=== PATIENT | female | born 1940 | race Caucasian/White ===

== ENCOUNTER 2017-01-16 10:03 | Inpatient (IN) | payer MEDICARE, OTHER ==
[~2017-01-16] VITALS: Ht 157.5 cm; Wt 83.9 kg
[~2017-01-16 10:03] MED LIST: LEVO25TA58 PO
[2017-01-16 10:05] VITALS: BP 168/71; PULSE 104; RESP 18; TEMP 98.1; O2SAT 99
[2017-01-16] MEDS ORDERED: ASPIRIN 81 MG TAB.CHEW PO ONE (10:15)
[2017-01-16 10:35] LABS: BASOPHILS % (AUTO) 0.5 % (0.0-2.0); EOSINOPHILS % (AUTO) 0.7 % (0.0-4.0); HEMATOCRIT 35.2 % (36-48); HEMOGLOBIN 11.2 g/dL (12.0-16.0); LYMPHOCYTES # (AUTO) 0.9 K/uL (1.0-5.5); LYMPHOCYTES % (AUTO) 18.8 % (20.5-51.5); MEAN CORPUSCULAR HEMOGLOBIN 25 pg (27-31); MEAN CORPUSCULAR HGB CONC 32 % (32-36); MEAN CORPUSCULAR VOLUME 78 fL (79.0-98.0); MONOCYTES # (AUTO) 0.4 K/uL (0.0-1.0); MONOCYTES % (AUTO) 9.1 % (1.7-9.3); NEUTROPHILS # (AUTO) 3.3 K/uL (1.8-7.7); NEUTROPHILS % (AUTO) 70.9 % (40.0-70.0); PLATELET COUNT (AUTO) 250 K/uL (130-430); RED BLOOD CELL COUNT(AUTO) 4.54 MIL/uL (4.2-6.2); RED CELL DISTRIBUTION WIDTH 16.6 % (9.0-15.0); WHITE BLOOD COUNT (AUTO) 4.6 K/uL (4.8-10.8)
[2017-01-16 10:42] LABS: ANION GAP 12 (5-15); CALCIUM 9.2 mg/dL (8.4-11.0); CHLORIDE 101 mmol/L (98-107); CREATININE 0.93 mg/dL (0.55-1.30); GLUCOSE 151 mg/dL (70-99); POTASSIUM 3.9 mmol/L (3.5-5.1); SODIUM SERUM 137 mmol/L (136-145); UREA NITROGEN, BLOOD 20 mg/dL (8-21)
[2017-01-16 10:45] LABS: PROTHROMBIN TIME 11.1 SECS (9.5-12.5)
[2017-01-16 10:46] LABS: ALANINE AMINOTRANSFERASE 22 U/L (12-78); ALBUMIN 4.1 g/dL (3.4-4.8); ASPARTATE AMINOTRANSFERASE 16 U/L (10-37); CHOLESTEROL 158 mg/dL (<200); HDL CHOLESTEROL 45 mg/dL (>55); LDL CHOLESTEROL 80 mg/dL (<100); TOTAL BILIRUBIN 0.6 mg/dL (0.0-1.0); TOTAL PROTEIN, SERUM 7.4 g/dL (6.4-8.3); TRIGLYCERIDES 166 mg/dL (30-150)
[2017-01-16 11:12] LABS: BILIRUBIN,URINE NEGATIVE (NEGATIVE); BLOOD, URINE NEGATIVE (NEGATIVE); CLARITY/URINE SL HAZY (CLEAR); COLOR,URINE YELLOW (YELLOW); GLUCOSE,URINE NEGATIVE (NEGATIVE); KETONES,URINE NEGATIVE (NEGATIVE); LEUKOCYTE ESTERASE ,URINE 1+ (NEGATIVE); NITRITE, URINE NEGATIVE (NEGATIVE); PROTEIN URINE NEGATIVE (NEGATIVE); UROBILINOGEN,URINE 0.2 (0.2-1.0)
[2017-01-16 11:20] LABS: BACTERIA,URINE FEW /HPF (None Seen); RBC,URINE 0-3 /HPF (0-3)
[2017-01-16] MEDS ORDERED: OMEP20CA10 PO (12:03)
[2017-01-16] MEDS ORDERED: DILT120C89 PO (12:03)
[2017-01-16] MEDS ORDERED: METO50TA7 PO (12:03)
[2017-01-16] MEDS ORDERED: ATOR20TA64 PO (12:03)
[2017-01-16] MEDS ORDERED: CEPH-568 PO (12:03)
[2017-01-16] MEDS ORDERED: LEVO50TA77 PO (12:03)
[2017-01-16] MEDS ORDERED: ASPIRIN 325 MG TABLET PO SCH (12:45)
[2017-01-16] MEDS ORDERED: NITROGLYCERIN 0.4 MG TAB.SUBL SL ONE ×2 (12:45)
[2017-01-16] MEDS ORDERED: DEXTROSE 50% JECT 50 ML DISP.SYRIN IVP PRN ×2 (12:45→13:00)
[2017-01-16] MEDS ORDERED: MORPHINE 4 MG/ML INJ. SYRINGE IVP PRN ×2 (12:45→13:00)
[2017-01-16] MEDS ORDERED: METOPROLOL TARTRATE 25 MG TABLET PO SCH (12:45)
[2017-01-16] MEDS ORDERED: MORPHINE 2 MG/ML INJ. SYRINGE IVP PRN (12:45)
[2017-01-16] MEDS ORDERED: ACETAMINOPHEN 325 MG TABLET PO PRN ×2 (12:45→13:00)
[2017-01-16] MEDS ORDERED: *LOVENOX 1MG/KG Q12H/PHARMACY XX ONE ×2 (12:45)
[2017-01-16] MEDS ORDERED: INSULIN REGULAR, HUMAN 100 UNITS/ML, 10 ML VIAL (novoLIN R) SUBCUT PRN ×2 (12:45→13:00)
[2017-01-16 13:09] VITALS: BP 150/90; PULSE 96; RESP 20; TEMP 97.7; O2SAT 98
[2017-01-16] MEDS ORDERED: ASPIRIN 325 MG TABLET PO ONE (14:00)
[2017-01-16] MEDS: MORPHINE 2 MG/ML INJ. SYRINGE IVP PRN ×2 (14:11→21:03)
[2017-01-16] MEDS ORDERED: ENOXAPARIN SODIUM 80 MG/0.8 ML SYRINGE SUBCUT ONE (14:15)
[2017-01-16 16:24] VITALS: BP 131/63; PULSE 99; RESP 17; TEMP 97.8; O2SAT 96
[2017-01-16] MEDS ORDERED: NACL 0.9% 1,000 ML IV ONE (18:30)
[2017-01-16 19:30] VITALS: BP 141/70; PULSE 94; RESP 18; TEMP 97.3; O2SAT 95
[2017-01-16] MEDS: ENOXAPARIN SODIUM 80 MG/0.8 ML SYRINGE SUBCUT SCH (21:02)
[2017-01-16] MEDS: METOPROLOL TARTRATE 25 MG TABLET PO SCH (21:02)
[2017-01-17 00:53] VITALS: BP 119/60; PULSE 98; RESP 18; TEMP 96.3; O2SAT 92
[2017-01-17] MEDS ORDERED: ONDANSETRON HCL 4 MG/2 ML VIAL IVP PRN (01:30)
[2017-01-17] MEDS: MORPHINE 2 MG/ML INJ. SYRINGE IVP PRN ×2 (01:48→05:55)
[2017-01-17 04:10] VITALS: BP 117/66; PULSE 85; RESP 20; TEMP 96.5; O2SAT 94
[2017-01-17] MEDS ORDERED: LEVOTHYROXINE SODIUM 0.05 MG TABLET PO SCH ×2 (07:00)
[2017-01-17 08:14] VITALS: BP 122/67; PULSE 91; RESP 14; TEMP 98; O2SAT 95
[2017-01-17] MEDS ORDERED: ASPIRIN 325 MG TABLET PO ONE (08:45)
[2017-01-17] MEDS ORDERED: METOPROLOL SUCCINATE 50 MG TAB.SR.24H (TOPROL XL) PO SCH ×2 (09:00)
[2017-01-17] MEDS: ENOXAPARIN SODIUM 80 MG/0.8 ML SYRINGE SUBCUT SCH (09:00)
[2017-01-17] MEDS ORDERED: ASPIRIN 81 MG TAB.CHEW PO SCH (09:00)
[2017-01-17] MEDS ORDERED: ASPIRIN 325 MG TABLET PO SCH (09:00)
[2017-01-17] MEDS ORDERED: DILTIAZEM HCL 120 MG CAP.SR.24H PO SCH ×2 (09:00)
[2017-01-17] MEDS ORDERED: OMEPRAZOLE 20 MG CAPSULE.DR (PriLOSEC) PO SCH ×2 (09:00)
[2017-01-17] MEDS ORDERED: ATORVASTATIN 20 MG TABLET PO SCH ×3 (09:00)
[2017-01-17] MEDS: METOPROLOL TARTRATE 25 MG TABLET PO SCH (09:20)
[2017-01-17 10:34] VITALS: BP 126/66; PULSE 74; RESP 16; TEMP 98.2; O2SAT 94
[2017-01-17 11:00] VITALS: BP 126/66; PULSE 74; RESP 16; TEMP 98.2; O2SAT 94
== END 2017-01-17 11:05 | disposition short-term general hospital (02) | DRG 311 ==
LOC: SED 10:03 → STU 13:18
PROVIDERS: ADMIT Internal Medicine Hospice and Palliative Medicine; ATTEND Internal Medicine Hospice and Palliative Medicine
DX: I20.0 Unstable angina (principal); E11.9 Type 2 diabetes mellitus without complications; E78.5 Hyperlipidemia, unspecified; I10 Essential (primary) hypertension; I48.91 Unspecified atrial fibrillation; F41.9 Anxiety disorder, unspecified; Z86.73 Personal history of transient ischemic attack (TIA), and cerebral infarction without residual deficits; Z88.2 Allergy status to sulfonamides; Z79.899 Other long term (current) drug therapy; Z90.49 Acquired absence of other specified parts of digestive tract
CPT/HCPCS: 36415; 71010; 80053; 80061; 81000-TC; 82962; 83880; 84484; 85025; 85379; 85610-TC; 85730-TC; 87086; 93005; 93306; 99285; J1650; J1815; J2270; J2405; J7030

== ENCOUNTER 2018-03-07 14:45 | Inpatient (IN) | payer OTHER ==
[~2018-03-07] VITALS: Ht 154.9 cm; Wt 80.7 kg
[2018-03-07 14:45] VITALS: BP_SYST 155
[~2018-03-07 14:45] MED LIST changes: +ATOR20TA64 PO; +CEPH-568 PO; +DILT120C89 PO; -LEVO25TA58 PO; +LEVO50TA77 PO; +METO50TA7 PO; +OMEP20CA10 PO
[2018-03-07] MEDS ORDERED: KETOROLAC TROMETHAMINE 30 MG VIAL IVP ONE (15:15)
[2018-03-07] MEDS ORDERED: AMPICILLIN SODIUM/SULBACTAM NA 3 GM in NS 100 ML IV ONE (15:15)
[2018-03-07 15:31] LABS: BASOPHILS % (AUTO) 0.6 % (0.0-2.0); EOSINOPHILS # (AUTO) 0.1 K/uL (0.0-0.4); EOSINOPHILS % (AUTO) 1.3 % (0.0-4.0); HEMATOCRIT 37.8 % (36-48); HEMOGLOBIN 12.5 g/dL (12.0-16.0); LYMPHOCYTES % (AUTO) 17.6 % (20.5-51.5); MEAN CORPUSCULAR HEMOGLOBIN 27 pg (27-31); MEAN CORPUSCULAR HGB CONC 33 % (32-36); MEAN CORPUSCULAR VOLUME 81 fL (79.0-98.0); MONOCYTES # (AUTO) 0.5 K/uL (0.0-1.0); MONOCYTES % (AUTO) 8.2 % (1.7-9.3); PLATELET COUNT (AUTO) 248 K/uL (130-430); RED BLOOD CELL COUNT(AUTO) 4.66 MIL/uL (4.2-6.2); RED CELL DISTRIBUTION WIDTH 22.7 % (9.0-15.0); WHITE BLOOD COUNT (AUTO) 5.6 K/uL (4.8-10.8)
[2018-03-07 15:37] LABS: ANION GAP 10 (5-15); CALCIUM 8.7 mg/dL (8.4-11.0); CHLORIDE 103 mmol/L (98-107); CREATININE 0.83 mg/dL (0.55-1.30); GLUCOSE 156 mg/dL (70-99); POTASSIUM 3.9 mmol/L (3.5-5.1); SODIUM SERUM 137 mmol/L (136-145); UREA NITROGEN, BLOOD 17 mg/dL (8-21)
[2018-03-07] MEDS ORDERED: AMPICILLIN SODIUM/SULBACTAM NA 3 GM VIAL ONE (15:38)
[2018-03-07 15:42] LABS: ALANINE AMINOTRANSFERASE 13 U/L (12-78); ALBUMIN 3.5 g/dL (3.4-4.8); ASPARTATE AMINOTRANSFERASE 15 U/L (10-37); INR 1.1 (0.8-1.2); PROTHROMBIN TIME 11.2 SECS (9.5-12.5); TOTAL BILIRUBIN 0.8 mg/dL (0.0-1.0)
[2018-03-07 16:03] LABS: NEUTROPHILS % (AUTO) 72.3 % (40.0-70.0)
[2018-03-07] MEDS ORDERED: TRAM50TA92 PO (16:26)
[2018-03-07] MEDS ORDERED: WARF1TAB2 PO (16:26)
[2018-03-07] MEDS ORDERED: CLOP75TA2 PO (16:26)
[2018-03-07] MEDS ORDERED: SOTA80TA PO (16:26)
[2018-03-07] MEDS ORDERED: ISOS30TA6 PO (16:26)
[2018-03-07] MEDS ORDERED: PRO40 PO (16:26)
[2018-03-07] MEDS ORDERED: GLIP-195 PO (16:26)
[2018-03-07 16:46] VITALS: BP_SYST 149
[2018-03-07] MEDS ORDERED: APIX5TAB PO (17:02)
[2018-03-07] MEDS ORDERED: MORPHINE 2 MG/ML INJ. SYRINGE IVP PRN (17:45)
[2018-03-07] MEDS ORDERED: traMADol HCL HCL 50 MG TABLET (ULTRAM) PO PRN (17:45)
[2018-03-07] MEDS ORDERED: ACETAMINOPHEN 325 MG TABLET PO PRN (17:45)
[2018-03-07] MEDS ORDERED: DEXTROSE 50% JECT 50 ML DISP.SYRIN IVP PRN (17:45)
[2018-03-07] MEDS: VANCOMYCIN HCL 1,000 MG in NS 250 ML IV SCH (18:45)
[2018-03-07 19:00] VITALS: BP_SYST 123
[2018-03-07] MEDS ORDERED: VANCOMYCIN HCL 1000 MG/VIAL IV ONE (20:55)
[2018-03-07] MEDS: MORPHINE 4 MG/ML INJ. SYRINGE IVP PRN (21:28)
[2018-03-07] MEDS: SOTALOL HCL 80 MG TABLET PO SCH (21:28)
[2018-03-08] VITALS (8 sets, daily range): BP systolic 102–142
[2018-03-08] MEDS: MORPHINE 4 MG/ML INJ. SYRINGE IVP PRN (04:20)
[2018-03-08] MEDS: LEVOTHYROXINE SODIUM 0.05 MG TABLET PO SCH (06:07)
[2018-03-08] MEDS: glipiZIDE XL 5 MG TAB ( GLUCOTROL XL) PO SCH (09:36)
[2018-03-08] MEDS: PANTOPRAZOLE SODIUM 40 MG TAB PO SCH (09:36)
[2018-03-08] MEDS: ATORVASTATIN 20 MG TABLET PO SCH (09:36)
[2018-03-08] MEDS: DILTIAZEM HCL 120 MG CAP.SR.24H PO SCH (09:37)
[2018-03-08] MEDS: METOPROLOL SUCCINATE 50 MG TAB.SR.24H (TOPROL XL) PO SCH (09:37)
[2018-03-08] MEDS ORDERED: NS 500 ML IV ONE (09:45)
[2018-03-08] MEDS: ISOSORBIDE MONONITRATE 30 MG TAB.ER.24H PO SCH (11:48)
[2018-03-08] MEDS: SOTALOL HCL 80 MG TABLET PO SCH ×2 (11:49→20:50)
[2018-03-08] MEDS ORDERED: ENOXAPARIN SODIUM 40 MG/0.4 ML SYRINGE SUBCUT ONE (15:15)
[2018-03-08] MEDS: ONDANSETRON HCL 4 MG/2 ML VIAL IVP PRN (15:54)
[2018-03-08] MEDS: INSULIN REGULAR, HUMAN 100 UNITS/ML, 10 ML VIAL (novoLIN R) SUBCUT PRN (17:20)
[2018-03-08] MEDS: VANCOMYCIN HCL 1,000 MG in NS 250 ML IV SCH (18:09)
[2018-03-09] MEDS: MORPHINE 4 MG/ML INJ. SYRINGE IVP PRN (02:27)
[2018-03-09] MEDS: LEVOTHYROXINE SODIUM 0.05 MG TABLET PO SCH (06:13)
[2018-03-09 06:21] LABS: ANION GAP 6 (5-15); CALCIUM 8.7 mg/dL (8.4-11.0); CHLORIDE 108 mmol/L (98-107); CREATININE 0.76 mg/dL (0.55-1.30); GLUCOSE 91 mg/dL (70-99); HEMATOCRIT 34.5 % (36-48); MEAN CORPUSCULAR HEMOGLOBIN 26 pg (27-31); MEAN CORPUSCULAR HGB CONC 32 % (32-36); MEAN CORPUSCULAR VOLUME 82 fL (79.0-98.0); PLATELET COUNT (AUTO) 183 K/uL (130-430); RED BLOOD CELL COUNT(AUTO) 4.19 MIL/uL (4.2-6.2); RED CELL DISTRIBUTION WIDTH 22.9 % (9.0-15.0); SODIUM SERUM 141 mmol/L (136-145); UREA NITROGEN, BLOOD 15 mg/dL (8-21); WHITE BLOOD COUNT (AUTO) 4.6 K/uL (4.8-10.8)
[2018-03-09 08:01] VITALS: BP_SYST 138
[2018-03-09] MEDS: ISOSORBIDE MONONITRATE 30 MG TAB.ER.24H PO SCH (08:49)
[2018-03-09] MEDS: SOTALOL HCL 80 MG TABLET PO SCH ×2 (08:50→21:09)
[2018-03-09] MEDS: METOPROLOL SUCCINATE 50 MG TAB.SR.24H (TOPROL XL) PO SCH (08:51)
[2018-03-09] MEDS: glipiZIDE XL 5 MG TAB ( GLUCOTROL XL) PO SCH (08:52)
[2018-03-09] MEDS: DILTIAZEM HCL 120 MG CAP.SR.24H PO SCH (08:52)
[2018-03-09] MEDS: ATORVASTATIN 20 MG TABLET PO SCH (08:53)
[2018-03-09] MEDS: PANTOPRAZOLE SODIUM 40 MG TAB PO SCH (08:54)
[2018-03-09] MEDS: ONDANSETRON HCL 4 MG/2 ML VIAL IVP PRN (08:54)
[2018-03-09] MEDS: ENOXAPARIN SODIUM 40 MG/0.4 ML SYRINGE SUBCUT SCH (08:54)
[2018-03-09] MEDS ORDERED: LACTULOSE 20 GM/30 ML UDC PO ONE (09:15)
[2018-03-09 11:55] VITALS: BP_SYST 129
[2018-03-09 12:00] LABS: BASOPHILS % (MANUAL) 0 % (0-2); EOSINOPHILS % (MANUAL) 4 % (0-7); LYMPHOCYTES % (MANUAL) 44 % (20-46); MONOCYTES % (MANUAL) 8 % (0-11)
[2018-03-09 16:09] VITALS: BP_SYST 125
[2018-03-09] MEDS: INSULIN REGULAR, HUMAN 100 UNITS/ML, 10 ML VIAL (novoLIN R) SUBCUT PRN (18:01)
[2018-03-09] MEDS: VANCOMYCIN HCL 1,000 MG in NS 250 ML IV SCH (18:31)
[2018-03-09 19:00] VITALS: BP_SYST 114
[2018-03-09 20:00] VITALS: BP_SYST 114
[2018-03-09] MEDS ORDERED: TEMAZEPAM 15 MG CAPSULE PO PRN (23:30)
[2018-03-10 00:02] VITALS: BP_SYST 116
[2018-03-10] MEDS: MORPHINE 4 MG/ML INJ. SYRINGE IVP PRN ×2 (00:09→06:56)
[2018-03-10] MEDS: LEVOTHYROXINE SODIUM 0.05 MG TABLET PO SCH (06:12)
[2018-03-10 06:51] LABS: BASOPHILS % (AUTO) 0.6 % (0.0-2.0); EOSINOPHILS # (AUTO) 0.2 K/uL (0.0-0.4); EOSINOPHILS % (AUTO) 3.3 % (0.0-4.0); HEMATOCRIT 34.8 % (36-48); HEMOGLOBIN 11.3 g/dL (12.0-16.0); LYMPHOCYTES # (AUTO) 1.3 K/uL (1.0-5.5); LYMPHOCYTES % (AUTO) 20.6 % (20.5-51.5); MEAN CORPUSCULAR HEMOGLOBIN 27 pg (27-31); MEAN CORPUSCULAR HGB CONC 32 % (32-36); MEAN CORPUSCULAR VOLUME 83 fL (79.0-98.0); MONOCYTES # (AUTO) 0.6 K/uL (0.0-1.0); NEUTROPHILS # (AUTO) 4.2 K/uL (1.8-7.7); NEUTROPHILS % (AUTO) 65.5 % (40.0-70.0); PLATELET COUNT (AUTO) 176 K/uL (130-430); RED CELL DISTRIBUTION WIDTH 22.9 % (9.0-15.0)
[2018-03-10 06:54] LABS: WHITE BLOOD COUNT (AUTO) 6.4 K/uL (4.8-10.8)
[2018-03-10] MEDS: ENOXAPARIN SODIUM 40 MG/0.4 ML SYRINGE SUBCUT SCH (09:46)
[2018-03-10] MEDS: METOPROLOL SUCCINATE 50 MG TAB.SR.24H (TOPROL XL) PO SCH (09:46)
[2018-03-10] MEDS: DILTIAZEM HCL 120 MG CAP.SR.24H PO SCH (09:47)
[2018-03-10] MEDS: SOTALOL HCL 80 MG TABLET PO SCH (09:47)
[2018-03-10] MEDS: glipiZIDE XL 5 MG TAB ( GLUCOTROL XL) PO SCH (09:47)
[2018-03-10] MEDS: ATORVASTATIN 20 MG TABLET PO SCH (09:47)
[2018-03-10] MEDS: ISOSORBIDE MONONITRATE 30 MG TAB.ER.24H PO SCH (09:48)
[2018-03-10] MEDS: PANTOPRAZOLE SODIUM 40 MG TAB PO SCH (09:48)
[2018-03-10 10:23] VITALS: BP_SYST 118
[2018-03-10] MEDS: ONDANSETRON HCL 4 MG/2 ML VIAL IVP PRN (11:12)
[2018-03-10 11:57] VITALS: BP_SYST 105
[2018-03-10] MEDS: INSULIN REGULAR, HUMAN 100 UNITS/ML, 10 ML VIAL (novoLIN R) SUBCUT PRN (12:29)
[2018-03-10 16:18] VITALS: BP_SYST 121
[2018-03-10] MEDS: VANCOMYCIN HCL 1,000 MG in NS 250 ML IV SCH (18:25)
[2018-03-10 19:57] VITALS: BP_SYST 111
== END 2018-03-10 21:06 | DRG 603 ==
LOC: SED 14:45 → SMU 16:23
PROVIDERS: ADMIT Internal Medicine Hospice and Palliative Medicine; ATTEND Internal Medicine Hospice and Palliative Medicine
DX: L03.115 Cellulitis of right lower limb (principal); E66.01 Morbid (severe) obesity due to excess calories; E11.9 Type 2 diabetes mellitus without complications; I48.91 Unspecified atrial fibrillation; E03.9 Hypothyroidism, unspecified; Z88.1 Allergy status to other antibiotic agents; Z68.33 Body mass index [BMI] 33.0-33.9, adult; I25.10 Atherosclerotic heart disease of native coronary artery without angina pectoris; E78.5 Hyperlipidemia, unspecified; I10 Essential (primary) hypertension; Z90.49 Acquired absence of other specified parts of digestive tract; Z95.5 Presence of coronary angioplasty implant and graft; Z96.651 Presence of right artificial knee joint; F41.9 Anxiety disorder, unspecified; M79.7 Fibromyalgia; Z60.2 Problems related to living alone
CPT/HCPCS: 36415; 71045; 73564; 80048; 80053; 80202-TC; 82962; 83605; 83880; 84484; 85007; 85025; 85027; 85379; 85610-TC; 85730-TC; 87040-TC; 93005; 93971; 96365; 96375; 97116-GP; 99285; J0295; J1650; J1815; J1885; J2270; J2405; J3370; J7040; J7050; J7060

== ENCOUNTER 2018-07-02 17:22 | Inpatient (IN) | payer OTHER ==
[~2018-07-02] VITALS: Ht 154.9 cm; Wt 80.7 kg
[~2018-07-02 17:22] MED LIST changes: +APIX5TAB PO; +GLIP-212 PO; +ISOS30TA6 PO; -LEVO50TA77 PO; -OMEP20CA10 PO; +PRO40 PO; +SOTA80TA PO; +SYN50 PO; +TRAM50TA92 PO
[2018-07-02 17:34] VITALS: BP_SYST 123
--- NOTE | 2018-07-02 17:40 | NUR ---
Pt placed to ER waiting room in W/C, stable condition.
--- NOTE | 2018-07-02 18:00 | NUR ---
Pt presents to ER c/o lower abdominal and rectal pain 8/10 on pain scale, bright red blood in stool, nausea but no vomiting. Pt reports symptoms have been ongoing past few days. Pt in no acute repiratory distress, speaking full sentences, AOX4, ambulatory w/ use of cane.
--- NOTE | 2018-07-02 18:18 | NUR ---
# 22 gauge angiocath placed to R HAND. Use of asceptic technique. Opsite placed over site. Blood return noted. Flushed with 10 cc of normal saline. No evidence of infiltration noted. Patient tolerated well.
--- NOTE | 2018-07-02 18:25 | NUR ---
RPatient transported to radiology via gurney, accompanied by rad staff.
--- NOTE | 2018-07-02 18:45 | NUR ---
ER at bedside examining patient.
--- NOTE | 2018-07-02 18:51 | NUR ---
Laboratory at bedside for blood draw.
[2018-07-02] MEDS ORDERED: NITR100C PO (18:52)
--- NOTE | 2018-07-02 18:53 | NUR ---
Medication reconciliation completed with information provided by pt. Any prior medication reconciliation on file was reviewed and corrected.
[2018-07-02] MEDS ORDERED: NS 500 ML IV ONE (19:00)
[2018-07-02] MEDS ORDERED: ONDANSETRON HCL 4 MG/2 ML VIAL IVP ONE (19:00)
[2018-07-02] MEDS ORDERED: MORPHINE 2 MG/ML INJ. SYRINGE IVP ONE (19:00)
[2018-07-02 19:09] LABS: BASOPHILS % (AUTO) 0.6 % (0.0-2.0); EOSINOPHILS # (AUTO) 0.1 K/uL (0.0-0.4); EOSINOPHILS % (AUTO) 2.2 % (0.0-4.0); HEMATOCRIT 37.8 % (36-48); HEMOGLOBIN 12.5 g/dL (12.0-16.0); LYMPHOCYTES # (AUTO) 0.9 K/uL (1.0-5.5); LYMPHOCYTES % (AUTO) 18.2 % (20.5-51.5); MEAN CORPUSCULAR HEMOGLOBIN 28 pg (27-31); MEAN CORPUSCULAR HGB CONC 33 % (32-36); MEAN CORPUSCULAR VOLUME 86 fL (79.0-98.0); MONOCYTES # (AUTO) 0.5 K/uL (0.0-1.0); MONOCYTES % (AUTO) 10.4 % (1.7-9.3); NEUTROPHILS # (AUTO) 3.6 K/uL (1.8-7.7); NEUTROPHILS % (AUTO) 68.6 % (40.0-70.0); PLATELET COUNT (AUTO) 236 K/uL (130-430); RED CELL DISTRIBUTION WIDTH 16.3 % (9.0-15.0); WHITE BLOOD COUNT (AUTO) 5.1 K/uL (4.8-10.8)
[2018-07-02 19:19] LABS: ANION GAP 7 (5-15); CALCIUM 8.9 mg/dL (8.4-11.0); CHLORIDE 103 mmol/L (98-107); CREATININE 0.77 mg/dL (0.55-1.30); GLUCOSE 123 mg/dL (70-99); POTASSIUM 4.4 mmol/L (3.5-5.1); SODIUM SERUM 137 mmol/L (136-145); UREA NITROGEN, BLOOD 21 mg/dL (8-21)
--- NOTE | 2018-07-02 19:20 | NUR ---
# 16 FR In and Out catheter with use of sterile technique. Immediate return of 200 ml light yellow urine noted. Urine sample collected and sent to lab. Pt tolerated procedure well.
[2018-07-02 19:25] LABS: ALANINE AMINOTRANSFERASE 30 U/L (12-78); ALBUMIN 3.9 g/dL (3.4-4.8); ASPARTATE AMINOTRANSFERASE 17 U/L (10-37); LIPASE 150 U/L (73-393); TOTAL BILIRUBIN 0.8 mg/dL (0.0-1.0)
[2018-07-02 19:30] LABS: BILIRUBIN,URINE NEGATIVE (NEGATIVE); BLOOD, URINE NEGATIVE (NEGATIVE); CLARITY/URINE CLEAR (CLEAR); COLOR,URINE YELLOW (YELLOW); GLUCOSE,URINE NEGATIVE (NEGATIVE); KETONES,URINE NEGATIVE (NEGATIVE); LEUKOCYTE ESTERASE ,URINE NEGATIVE (NEGATIVE); NITRITE, URINE NEGATIVE (NEGATIVE); PH,URINE 5.5 (5.0-8.0); PROTEIN URINE NEGATIVE (NEGATIVE); UROBILINOGEN,URINE 0.2 (0.2-1.0)
--- NOTE | 2018-07-02 19:31 | NUR ---
End of life care decisions discussed with Jazmin Lema by Dr. Mccoy. Opportunity for questions and concerns addressed. Patient's code status is full-code paperwork completed and placed in chart.
[2018-07-02 19:50] VITALS: BP_SYST 120
--- NOTE | 2018-07-02 19:50 | NUR ---
ADMISSION NOTE Received patient from ER via gurney. Patient admitted with diagnosis of . Patient is awake, alert, oriented X 4. Patient oriented to hospital room, call light, toileting, pain management and safety-teach back done. Patient informed that WILLIE will be her nurse and that their room number is 105a. Personal belongings checked and Belongings List documented. Call light within reach.
--- NOTE | 2018-07-02 19:50 | NUR ---
Patient will be admitted to care of Dr. Pena. Admitted to med surg unit. Will go to room 135. Belongings list completed. Summary report printed. Report given to admitting RN at bedside.
--- NOTE | 2018-07-02 20:00 | NUR ---
OPENING NOTE RECEIVED PT ENDORSEMENT REPORT FROM ADMITTING NURSE DOW AT BEDSIDE. PT RESTING IN BED WITH EYES OPEN. PT IS AOX4. PT'S CHEST RISE EVEN AND UNLABORED. PT DOES NOT APPEAR TO BE IN ANY ACUTE DISTRESS OR PAIN AT THIS TIME. BREATHING IS EVEN AN UNLABORED, PT IS ON RA. PT WAS BROUGHT TO [facility] FLOOR VIA GURNEY AT 1950. IV SITE PATENT, DRY AND CLEAN. PT HAS IV ON R HAND 22G, SL. PT DENIED PAIN AT THIS TIME. PT ABLE TO AMBULATE WITH ASSISTANCE. PT ORIENTED TO HOSPITAL ROOM, PT EDUCATED HOW TO USE CALL LIGHT AND ROOM PHONE FOR ASSISTANCE,PT VERBALIZED UNDERSTANDING. SAFETY MEASURES IN PLACE. CALL LIGHT WITHIN REACH, BED IN LOWEST POSITION, BED WHEELS LOCKED, SIDE RAILS UP X2, BEDSIDE TABLE WITHIN REACH, BED ALARM ON. WILL CONTINUE WITH PT'S POC.
[2018-07-02 20:05] VITALS: BP_SYST 125
--- NOTE | 2018-07-02 20:10 | NUR ---
PT HAS CANE AT BEDSIDE.
--- NOTE | 2018-07-02 22:00 | NUR ---
RN ROUNDS PT RESTING IN BED WITH EYES OPEN. PT'S CHEST RISE EVEN AND UNLABORED. PT DOES NOT APPEAR TO BE IN ANY ACUTE DISTRESS OR PAIN AT THIS TIME. BREATHING IS EVEN AN UNLABORED, PT IS ON RA. VITAL SIGNS WNL. PT ASSISTED TO THE RESTROOM, PT ABLE TO AMBULATE WELL WITH ASSISTANCE. PT ASSISTED BACK INTO BED. NO OTHER NEEDS AT THIS TIME. SAFETY MEASURES IN PLACE. CALL LIGHT WITHIN REACH, BED IN LOWEST POSITION, BED WHEELS LOCKED, SIDE RAILS UP X2, BEDSIDE TABLE WITHIN REACH, BED ALARM ON. WILL CONTINUE WITH PT'S POC.
[2018-07-02] MEDS ORDERED: ALBUTEROL SULFATE 0.083% 2.5 MG/3 ML VIAL.NEB INH PRN (23:15)
--- NOTE | 2018-07-02 23:58 | NUR ---
RN ROUNDS PT RESTING IN BED WITH EYES OPEN. PT'S CHEST RISE EVEN AND UNLABORED. PT DOES NOT APPEAR TO BE IN ANY ACUTE DISTRESS OR PAIN AT THIS TIME. BREATHING IS EVEN AN UNLABORED, PT IS ON RA. PT HAS IV ON R HAND 22G. PT'S SCHEDULED MEDICATIONS ADMINISTERED ORDERED, PT TOLERATED WELL. PT C/O 6/10 PAIN TO THE RECTUM, PRN NORCO ADMINISTERED ORDERED, PT TOLERATED WELL. WILL MONITOR MEDICATION EFFECTIVENESS. IVF INFUSING WELL. NO OTHER NEEDS AT THIS TIME. SAFETY MEASURES IN PLACE. CALL LIGHT WITHIN REACH, BED IN LOWEST POSITION, BED WHEELS LOCKED, SIDE RAILS UP X2, BEDSIDE TABLE WITHIN REACH, BED ALARM ON. WILL CONTINUE WITH PT'S POC.
[2018-07-03] MEDS: HYDROcodone/ACETAMIN 5-325 MG TAB (NORCO/ VICODIN) PO PRN ×4 (00:01→21:52)
[2018-07-03] MEDS: PANTOPRAZOLE SODIUM 40 MG/VIAL (PROTONIX) IVP SCH ×3 (00:02→21:42)
[2018-07-03] MEDS: NACL 0.9% 1,000 ML IV SCH ×3 (00:02→18:16)
[2018-07-03 00:40] VITALS: BP_SYST 133
--- NOTE | 2018-07-03 01:40 | NUR ---
RN ROUNDS PT RESTING IN BED WITH EYES OPEN. PT'S CHEST RISE EVEN AND UNLABORED. PT DOES NOT APPEAR TO BE IN ANY ACUTE DISTRESS OR PAIN AT THIS TIME. BREATHING IS EVEN AN UNLABORED, PT IS ON RA. PT DENIES PAIN AT THIS TIME. IVF INFUSING WELL. NO OTHER NEEDS AT THIS TIME. SAFETY MEASURES IN PLACE. CALL LIGHT WITHIN REACH, BED IN LOWEST POSITION, BED WHEELS LOCKED, SIDE RAILS UP X2, BEDSIDE TABLE WITHIN REACH, BED ALARM ON. WILL CONTINUE WITH PT'S POC.
--- NOTE | 2018-07-03 01:41 | NUR ---
PAGED I PAGED DR. OFLEY I SPOKE WITH SALOMON CASH
[2018-07-03 01:42] VITALS: BP_SYST 133
--- NOTE | 2018-07-03 01:42 | NUR ---
PT REPORTS MED WAS AT BEDSIDE AND SPOKE TO PT. DR. OG OVALLE FOR CLARIFICATION OF ORDERS.
--- NOTE | 2018-07-03 01:49 | NUR ---
NURSE SPOKE TO DR. FOLEY VIA PHONE, STATED NO NEED FOR COLONOSCOPY PREP AT THIS TIME, CONSULTATION DR. IVAN WILL BE CALLED IN THE AM AND COME SEE PT LATER TODAY 07/[address] ORDERS NEEDED PER VISIT ASSESSMENT.
--- NOTE | 2018-07-03 02:29 | NUR ---
RN ROUNDS PT RESTING IN BED WITH EYES CLOSED. PT'S CHEST RISE EVEN AND UNLABORED. PT DOES NOT APPEAR TO BE IN ANY ACUTE DISTRESS OR PAIN AT THIS TIME. BREATHING IS EVEN AN UNLABORED. NO NEEDS AT THIS TIME. SAFETY MEASURES IN PLACE. CALL LIGHT WITHIN REACH, BED IN LOWEST POSITION, BED WHEELS LOCKED, SIDE RAILS UP X2, BEDSIDE TABLE WITHIN REACH, BED ALARM ON. WILL CONTINUE WITH PT'S POC.
--- NOTE | 2018-07-03 04:23 | NUR ---
CONSULT CONSULT CALLED FOR DR. REHMAN I SPOKE WITH KEL MOLINA [employer] THIS MORNING REASON FOR CONSULT: GI BLEEDING REQUESTING CONSULT: DR. OG RODRIGUEZ I CALLED [phone]
--- NOTE | 2018-07-03 04:43 | NUR ---
RN ROUNDS PT RESTING IN BED WITH EYES CLOSED. PT'S CHEST RISE EVEN AND UNLABORED. PT DOES NOT APPEAR TO BE IN ANY ACUTE DISTRESS OR PAIN AT THIS TIME. BREATHING IS EVEN AN UNLABORED. SAFETY MEASURES IN PLACE. CALL LIGHT WITHIN REACH, BED IN LOWEST POSITION, BED WHEELS LOCKED, SIDE RAILS UP X2, BEDSIDE TABLE WITHIN REACH, BED ALARM ON. WILL CONTINUE WITH PT'S POC.
[2018-07-03] MEDS: LEVOTHYROXINE SODIUM 0.05 MG TABLET PO SCH (06:11)
--- NOTE | 2018-07-03 06:16 | NUR ---
Paged Dr. Pena dialed [phone], s/w Zuleyka.
--- NOTE | 2018-07-03 06:30 | NUR ---
BS 95
--- NOTE | 2018-07-03 06:38 | NUR ---
RN ROUNDS PT RESTING IN BED WITH EYES OPEN. PT'S CHEST RISE EVEN AND UNLABORED. PT DOES NOT APPEAR TO BE IN ANY ACUTE DISTRESS OR PAIN AT THIS TIME. BREATHING IS EVEN AN UNLABORED. PT REPORTS 6/10 RECTAL PAIN, PRN NORCO GIVEN FOR PAIN, PT TOLERATED WELL. WILL MONITOR MEDICATION EFFECTIVENESS. NO OTHER NEEDS AT THIS TIME. SAFETY MEASURES IN PLACE. CALL LIGHT WITHIN REACH, BED IN LOWEST POSITION, BED WHEELS LOCKED, SIDE RAILS UP X2, BEDSIDE TABLE WITHIN REACH, BED ALARM ON. WILL CONTINUE WITH PT'S POC.
[2018-07-03 06:39] LABS: EOSINOPHILS # (AUTO) 0.2 K/uL (0.0-0.4); HEMOGLOBIN 11.7 g/dL (12.0-16.0); NEUTROPHILS % (AUTO) 60.5 % (40.0-70.0); WHITE BLOOD COUNT (AUTO) 4.6 K/uL (4.8-10.8)
[2018-07-03 06:47] LABS: ANION GAP 8 (5-15); CALCIUM 8.2 mg/dL (8.4-11.0); CHLORIDE 109 mmol/L (98-107); CREATININE 0.73 mg/dL (0.55-1.30); GLUCOSE 97 mg/dL (70-99); POTASSIUM 4.3 mmol/L (3.5-5.1); SODIUM SERUM 142 mmol/L (136-145); UREA NITROGEN, BLOOD 14 mg/dL (8-21)
--- NOTE | 2018-07-03 06:49 | NUR ---
CLOSING NOTE WILL ENDORSE PT REPORT TO DAY SHIFT. PT RESTING IN BED WITH EYES CLOSED. PT IS AOX4. PT'S CHEST RISE EVEN AND UNLABORED. PT DOES NOT APPEAR TO BE IN ANY ACUTE DISTRESS OR PAIN AT THIS TIME. BREATHING IS EVEN AN UNLABORED. PT ABLE TO AMBULATE WITH ASSISTANCE. ALL NEEDS MET THROUGHOUT SHIFT, ALL SCHEDULED MEDICATIONS ADMINISTERED ORDERED. NO OTHER NEEDS AT THIS TIME. SAFETY MEASURES IN PLACE. CALL LIGHT WITHIN REACH, BED IN LOWEST POSITION, BED WHEELS LOCKED, SIDE RAILS UP X2, BEDSIDE TABLE WITHIN REACH, BED ALARM ON. WILL CONTINUE WITH PT'S POC.
[2018-07-03 06:53] LABS: BASOPHILS % (AUTO) 0.6 % (0.0-2.0); EOSINOPHILS % (AUTO) 4.5 % (0.0-4.0); HEMATOCRIT 35.1 % (36-48); LYMPHOCYTES % (AUTO) 22.7 % (20.5-51.5); MEAN CORPUSCULAR HEMOGLOBIN 29 pg (27-31); MEAN CORPUSCULAR HGB CONC 33 % (32-36); MEAN CORPUSCULAR VOLUME 86 fL (79.0-98.0); MONOCYTES # (AUTO) 0.5 K/uL (0.0-1.0); MONOCYTES % (AUTO) 11.7 % (1.7-9.3); NEUTROPHILS # (AUTO) 2.9 K/uL (1.8-7.7); PLATELET COUNT (AUTO) 203 K/uL (130-430); RED BLOOD CELL COUNT(AUTO) 4.09 MIL/uL (4.2-6.2); RED CELL DISTRIBUTION WIDTH 16.2 % (9.0-15.0)
[2018-07-03 06:57] LABS: ALANINE AMINOTRANSFERASE 26 U/L (12-78); ALBUMIN 3.5 g/dL (3.4-4.8); ASPARTATE AMINOTRANSFERASE 17 U/L (10-37); TOTAL BILIRUBIN 0.7 mg/dL (0.0-1.0)
--- NOTE | 2018-07-03 07:35 | NUR ---
Opening Note: Patient laying in bed resting, patient denies abdominal pain and discomfort. Breathing is even and unlabored with no distress noted. IV patent and intact. SCD's in place. Cane at bedside. Safety precautions in place; bed in lowest position, wheels locked, side rails x3, bed alarm activated and call light within reach. No current needs. Will continue to monitor.
[2018-07-03 08:00] VITALS: BP_SYST 113
[2018-07-03] MEDS: METOPROLOL SUCCINATE 50 MG TAB.SR.24H (TOPROL XL) PO SCH (09:00)
[2018-07-03] MEDS: DILTIAZEM HCL 120 MG CAP.SR.24H PO SCH (09:00)
[2018-07-03] MEDS: ISOSORBIDE MONONITRATE 30 MG TAB.ER.24H PO SCH (09:00)
[2018-07-03] MEDS: ATORVASTATIN 20 MG TABLET PO SCH (09:05)
[2018-07-03] MEDS: SOTALOL HCL 80 MG TABLET PO SCH ×2 (09:06→21:42)
--- NOTE | 2018-07-03 10:10 | NUR ---
Rounding: Patient laying in bed resting. Patient denies pain and discomfort. No current needs. Will continue to monitor.
[2018-07-03] MEDS ORDERED: COMMUNICATION ORDER XX ONE (11:15)
[2018-07-03] MEDS ORDERED: GOLYTELY / COLYTE SOLUTION 4 LITERS PO ONE (11:15)
[2018-07-03] MEDS: INSULIN ASPART 100 UNITS/ML, 10 ML VIAL (NovoLOG) SUBCUT PRN (11:58)
--- NOTE | 2018-07-03 12:08 | NUR ---
Rounding: Patient laying in bed resting. Patient denies pain and discomfort. Breathing is even and unlabored with no distress noted. Morning medications tolerated well. No current needs. Will continue to monitor.
[2018-07-03 12:18] VITALS: BP_SYST 147
--- NOTE | 2018-07-03 14:13 | NUR ---
Rounding: Patient laying in bed resting. Patient denies pain and discomfort. Breathing is even and unlabored with no distress noted. No current needs. Will continue to monitor.
[2018-07-03 14:58] LABS: BASOPHILS % (AUTO) 0.7 % (0.0-2.0); EOSINOPHILS # (AUTO) 0.2 K/uL (0.0-0.4); EOSINOPHILS % (AUTO) 2.4 % (0.0-4.0); HEMATOCRIT 36.7 % (36-48); HEMOGLOBIN 12.2 g/dL (12.0-16.0); LYMPHOCYTES # (AUTO) 0.7 K/uL (1.0-5.5); LYMPHOCYTES % (AUTO) 11.7 % (20.5-51.5); MEAN CORPUSCULAR HEMOGLOBIN 29 pg (27-31); MEAN CORPUSCULAR HGB CONC 33 % (32-36); MEAN CORPUSCULAR VOLUME 86 fL (79.0-98.0); MONOCYTES # (AUTO) 0.5 K/uL (0.0-1.0); MONOCYTES % (AUTO) 8.1 % (1.7-9.3); NEUTROPHILS # (AUTO) 4.8 K/uL (1.8-7.7); NEUTROPHILS % (AUTO) 77.1 % (40.0-70.0); PLATELET COUNT (AUTO) 221 K/uL (130-430); RED BLOOD CELL COUNT(AUTO) 4.26 MIL/uL (4.2-6.2); RED CELL DISTRIBUTION WIDTH 16.2 % (9.0-15.0); WHITE BLOOD COUNT (AUTO) 6.3 K/uL (4.8-10.8)
--- NOTE | 2018-07-03 16:20 | NUR ---
Rounding: Patient assisted to restroom. Patient denies pain and discomfort. Breathing is even and unlabored with no distress noted. No distress noted. Safety precautions in place and call light within reach. No current needs. Will continue to monitor.
[2018-07-03 16:36] VITALS: BP_SYST 120
--- NOTE | 2018-07-03 18:51 | NUR ---
Closing Note: Patient laying in bed resting, patient denies abdominal pain and discomfort. Breathing is even and unlabored with no distress noted. IV patent and intact running IV fluids per MD order. SCD's in place. Safety precautions in place; bed in lowest position, wheels locked, side rails x3, bed alarm activated and call light within reach. All needs met. Will endorse plan of care to NOC, nurse.
[2018-07-03 20:12] VITALS: BP_SYST 136
--- NOTE | 2018-07-03 20:15 | NUR ---
PATIENT ALERT AMBULATORY ASSIST TO REST ROOM , ROSANNA REYNAGA ENCOURAGED & TOLERATING assist as needed FALL MEASURES IMPLEMENTED / .
--- NOTE | 2018-07-03 23:22 | NUR ---
ROSANNA REYNAGA PATIENT DRINKING ALSO USING BSC .
--- NOTE | 2018-07-03 23:23 | NUR ---
PATIENT JE NPO @ MIDNIGHT ALERT AND AWARE .
--- NOTE | 2018-07-03 23:25 | NUR ---
NORCO PO 5/325 MG PO GIVEN FOR GENERAL DISCOMFORT & HELPFUL .
[2018-07-04 00:33] VITALS: BP_SYST 156
[2018-07-04] MEDS: NACL 0.9% 1,000 ML IV SCH ×2 (04:35→13:44)
--- NOTE | 2018-07-04 04:35 | NUR ---
Patient out of bed to BSC , semi clear stool noted 275 ml , assist back to bed , patient alert & oriented .
--- NOTE | 2018-07-04 05:00 | NUR ---
Phoned paged DR EDNA BENEDICT for ORDERS , TAP WATER ENEMA , for AM procedure .
--- NOTE | 2018-07-04 05:02 | NUR ---
PAGE CALLED FOR DR. BISHOP. SPOKE TO FABRIZIO, DIALED [phone].
--- NOTE | 2018-07-04 05:17 | NUR ---
PAGE CALLED FOR DR. BISHOP. SPOKE TO FABRIZIO, DIALED [phone].
--- NOTE | 2018-07-04 05:34 | NUR ---
3RD PAGE CALLED FOR DR. BISHOP. SPOKE TO FABRIZIO, DIALED [phone].
--- NOTE | 2018-07-04 05:43 | NUR ---
DR BISHOP , NEW ORDERS FOR TAP WATER ENEMA ALSO DR BISHOP STATES OK TO GIVE NORCO PO FOR PAIN , THIS HOUR .
[2018-07-04] MEDS: HYDROcodone/ACETAMIN 5-325 MG TAB (NORCO/ VICODIN) PO PRN (05:49)
[2018-07-04] MEDS: LEVOTHYROXINE SODIUM 0.05 MG TABLET PO SCH (06:25)
--- NOTE | 2018-07-04 06:35 | NUR ---
TAP WATER ENEMA GIVEN RIGHT LATERAL SIDE LYING POSITION , CLEAR FLUID 300 ML RETURN NOTED , PATIENT AWAKE ALERT & TOLERATED PROCEDURE .
[2018-07-04] MEDS ORDERED: SIMETHICONE 40 MG/0.6 ML ML ONE (07:01)
[2018-07-04] MEDS ORDERED: MIDAZOLAM HCL 5 MG/5 ML VIAL ONE (07:01)
--- NOTE | 2018-07-04 07:15 | NUR ---
Opening Note: Patient off of floor, went to GI for Colonoscopy.
[2018-07-04] MEDS: fentaNYL CITRATE/PF 100 MCG/2 ML AMP ONE ×4 (07:35→11:42)
[2018-07-04] MEDS: MIDAZOLAM HCL 5 MG/5 ML VIAL ONE ×3 (07:35→07:40)
[2018-07-04] MEDS ORDERED: LIDOCAINE 2% JELLY UROJECT 10 ML MM ONE (07:47)
[2018-07-04] MEDS: DILTIAZEM HCL 120 MG CAP.SR.24H PO SCH (09:00)
[2018-07-04] MEDS: METOPROLOL SUCCINATE 50 MG TAB.SR.24H (TOPROL XL) PO SCH (09:00)
[2018-07-04] MEDS: ISOSORBIDE MONONITRATE 30 MG TAB.ER.24H PO SCH (09:00)
[2018-07-04 09:10] VITALS: BP_SYST 142
--- NOTE | 2018-07-04 09:10 | NUR ---
Patient back on floor: Patient back on floor. Patient helped into bed, resting comfortably, patient denies abdominal pain and discomfort. Breathing is even and unlabored with no distress noted. IV patent and intact. Safety precautions in place; bed in lowest position, wheels locked, side rails x3, bed alarm activated and call light within reach. Vital signs stable. Patient given some applesauce per request. Will continue to monitor.
[2018-07-04] MEDS: PANTOPRAZOLE SODIUM 40 MG/VIAL (PROTONIX) IVP SCH (09:34)
[2018-07-04] MEDS: ATORVASTATIN 20 MG TABLET PO SCH (09:35)
[2018-07-04] MEDS: SOTALOL HCL 80 MG TABLET PO SCH (09:35)
[2018-07-04] MEDS ORDERED: ALBUTEROL SULFATE 0.083% 2.5 MG/3 ML VIAL.NEB INH PRN (10:30)
[2018-07-04] MEDS ORDERED: IPRATROPIUM BROM 0.5 MG/2.5 ML VIAL.NEB (ATROVENT) INH PRN (10:30)
[2018-07-04] MEDS: ALBUTEROL SULFATE 0.083% 2.5 MG/3 ML VIAL.NEB INH SCH ×3 (11:19→19:44)
[2018-07-04] MEDS: IPRATROPIUM BROM 0.5 MG/2.5 ML VIAL.NEB (ATROVENT) INH SCH ×3 (11:19→19:44)
[2018-07-04] MEDS: INSULIN ASPART 100 UNITS/ML, 10 ML VIAL (NovoLOG) SUBCUT PRN ×2 (11:41→17:29)
--- NOTE | 2018-07-04 11:42 | NUR ---
Fingerstick: Blood sugar 221, covered with 4 units insulin per sliding scale.
[2018-07-04 12:15] VITALS: BP_SYST 135
--- NOTE | 2018-07-04 14:10 | NUR ---
Rounding: Patient laying in bed resting. No distress noted. No current needs.
--- NOTE | 2018-07-04 14:49 | NUR ---
Called Family: Called family and left a voice message for son Ian regarding patient's discharge. Patient feels too weak to drive self home. Will arrange warp picker with son.
--- NOTE | 2018-07-04 16:04 | NUR ---
Rounding: Patient laying in bed resting. Per patient she was able to get a hold of her daughter in law who said she will pick her up at 1800. No pain or discomfort. Breathing is even and unlabored with no distress noted. Safety precautions in place. No current needs. Will continue to monitor.
[2018-07-04 16:24] VITALS: BP_SYST 140
[2018-07-04 17:17] VITALS: BP_SYST 140
--- NOTE | 2018-07-04 17:30 | NUR ---
Fingerstick: Blood sugar 155, covered with 2 units insulin per sliding scale.
--- NOTE | 2018-07-04 18:48 | NUR ---
Closing Note: Patient laying in bed resting, patient denies abdominal pain and discomfort. Breathing is even and unlabored with no distress noted. IV patent and intact. Safety precautions in place; bed in lowest position, wheels locked, side rails x3, bed alarm activated and call light within reach. Patient waiting for daughter in law to pick her up. All needs met. Will endorse plan of care to NOC, nurse.
[2018-07-04 19:45] VITALS: BP_SYST 139
--- NOTE | 2018-07-04 20:00 | NUR ---
PATIENT D/C HOME WITH INSTRUCTIONS ACCOMPANY WITH FAMILY & DAUGHTER , IV D/C I.D. REMOVED , ORDERS CARRIED OUT .
== END 2018-07-04 20:20 | disposition home or self-care (01) | DRG 379 ==
LOC: SED 17:22 → SMU 19:36
PROVIDERS: ADMIT Internal Medicine; ATTEND Internal Medicine
PROC: 0DBL8ZZ Excision of Transverse Colon, Via Natural or Artificial Opening Endoscopic (ICD-10-PCS; 2018-07-04)
PROC: 0DBH8ZZ Excision of Cecum, Via Natural or Artificial Opening Endoscopic (ICD-10-PCS; principal; 2018-07-04 07:00)
DX: K57.31 Diverticulosis of large intestine without perforation or abscess with bleeding (principal); I48.91 Unspecified atrial fibrillation; E11.9 Type 2 diabetes mellitus without complications; I10 Essential (primary) hypertension; K63.5 Polyp of colon; K64.4 Residual hemorrhoidal skin tags; F41.9 Anxiety disorder, unspecified; D12.0 Benign neoplasm of cecum; M79.7 Fibromyalgia; E03.9 Hypothyroidism, unspecified; Z86.73 Personal history of transient ischemic attack (TIA), and cerebral infarction without residual deficits; Z83.3 Family history of diabetes mellitus; Z82.49 Family history of ischemic heart disease and other diseases of the circulatory system; Z95.5 Presence of coronary angioplasty implant and graft; Z79.899 Other long term (current) drug therapy; Z79.84 Long term (current) use of oral hypoglycemic drugs; Z88.2 Allergy status to sulfonamides; Z79.01 Long term (current) use of anticoagulants
CPT/HCPCS: 36415; 45380; 71045; 80053; 81003; 82962; 83690-TC; 85025; 88305; 93005; 94640; 96361; 96374; 96375; 99285; C9113; J1815; J2250; J2270; J2405; J3010; J7030; J7613

== ENCOUNTER 2018-08-16 16:58 | Emergency (ER) | payer OTHER ==
[~2018-08-16] VITALS: Ht 147.3 cm; Wt 79.4 kg
[~2018-08-16 16:58] MED LIST changes: +APIX5TAB4 PO; +ASPI-1153 PO; +BUPR75TA20 PO; -CEPH-568 PO; +CHOL100053 PO; +LIP10 PO; +LISI-209 PO; +NITR100C PO; +PHEN-726 PO; +PSEU30CA2 PO
[2018-08-16 17:15] VITALS: BP_SYST 111
[2018-08-16 17:48] LABS: BASOPHILS % (AUTO) 0.5 % (0.0-2.0); EOSINOPHILS # (AUTO) 0.1 K/uL (0.0-0.4); EOSINOPHILS % (AUTO) 1.3 % (0.0-4.0); HEMATOCRIT 40.5 % (36-48); HEMOGLOBIN 12.7 g/dL (12.0-16.0); LYMPHOCYTES # (AUTO) 0.8 K/uL (1.0-5.5); LYMPHOCYTES % (AUTO) 17.7 % (20.5-51.5); MEAN CORPUSCULAR HEMOGLOBIN 28 pg (27-31); MEAN CORPUSCULAR HGB CONC 32 % (32-36); MEAN CORPUSCULAR VOLUME 89 fL (79.0-98.0); MONOCYTES # (AUTO) 0.6 K/uL (0.0-1.0); MONOCYTES % (AUTO) 12.5 % (1.7-9.3); NEUTROPHILS # (AUTO) 3.1 K/uL (1.8-7.7); PLATELET COUNT (AUTO) 252 K/uL (130-430); RED BLOOD CELL COUNT(AUTO) 4.55 MIL/uL (4.2-6.2); RED CELL DISTRIBUTION WIDTH 16.9 % (9.0-15.0); WHITE BLOOD COUNT (AUTO) 4.6 K/uL (4.8-10.8)
[2018-08-16 18:02] LABS: ANION GAP 6 (5-15); CHLORIDE 104 mmol/L (98-107); GLUCOSE 137 mg/dL (70-99); POTASSIUM 4.2 mmol/L (3.5-5.1); SODIUM SERUM 136 mmol/L (136-145); UREA NITROGEN, BLOOD 22 mg/dL (8-21)
[2018-08-16 18:07] LABS: ALANINE AMINOTRANSFERASE 40 U/L (12-78); ALBUMIN 3.7 g/dL (3.4-4.8); ASPARTATE AMINOTRANSFERASE 20 U/L (10-37); TOTAL BILIRUBIN 0.6 mg/dL (0.0-1.0)
[2018-08-16 18:42] LABS: BILIRUBIN,URINE NEGATIVE (NEGATIVE); BLOOD, URINE NEGATIVE (NEGATIVE); CLARITY/URINE CLEAR (CLEAR); COLOR,URINE AMBER (YELLOW); GLUCOSE,URINE NEGATIVE (NEGATIVE); KETONES,URINE NEGATIVE (NEGATIVE); LEUKOCYTE ESTERASE ,URINE NEGATIVE (NEGATIVE); PROTEIN URINE NEGATIVE (NEGATIVE)
[2018-08-16 18:50] LABS: NITRITE, URINE NEGATIVE (NEGATIVE)
--- NOTE | 2018-08-16 20:25 | NUR ---
Patient to ER bed 02 to gown for evaluation. Side rails up. Report given to ERNESTO Hairston
--- NOTE | 2018-08-16 20:34 | NUR ---
Pt is AAOx4 and ambulatory with cane. Pt accompanied by son. Per pt and son pt has had multiple recurring UTIs that she has been treated for. Pt recently completed latest dose of cipro that was prescribed and felt better however, she now feels urgency and burning upon urination. Pt is very anxious and restless at this time, son states that the recurrent UTIs and hospital visits have "really messed with her head". Pt states +n, YIP, and 10/10 abd pain at this time. Will continue to monitor pt.
--- NOTE | 2018-08-16 20:40 | NUR ---
JAMI Van at bedside examining patient.
--- NOTE | 2018-08-16 20:40 | NUR ---
Lizette interiano in ED - 08/16/18 at 2043 by [email or web address] JAMI Van at bedside examining patient.
[2018-08-16] MEDS ORDERED: LORazepam 1 MG TABLET PO ONE (21:00)
[2018-08-16] MEDS ORDERED: HYDROcodone/ACETAMIN 5-325 MG TAB (NORCO/ VICODIN) PO ONE (21:00)
[2018-08-16 22:32] VITALS: BP_SYST 113
--- NOTE | 2018-08-16 22:32 | NUR ---
Patient given written and verbal discharge instructions and verbalizes understanding. ER MD discussed with patient the results and treatment provided. Patient in stable condition. ID arm band removed. Rx of Tramadol given. Patient educated on pain management and to follow up with PMD. Pain Scale 0/10. Opportunity for questions provided and answered. Medication side effect fact sheet provided.
== END 2018-08-16 22:32 | disposition home or self-care (01) ==
LOC: SED 16:58
DX: N32.89 Other specified disorders of bladder (principal); K59.00 Constipation, unspecified; I48.91 Unspecified atrial fibrillation; E11.9 Type 2 diabetes mellitus without complications; I10 Essential (primary) hypertension; M79.7 Fibromyalgia; F41.9 Anxiety disorder, unspecified; Z86.73 Personal history of transient ischemic attack (TIA), and cerebral infarction without residual deficits; Z88.2 Allergy status to sulfonamides; Z79.899 Other long term (current) drug therapy
CPT/HCPCS: 36415; 74018; 80053; 81003; 85025; 99285

== ENCOUNTER 2019-06-14 13:29 | Emergency (ER) | payer OTHER ==
[~2019-06-14] VITALS: Ht 152.4 cm; Wt 70.3 kg
[~2019-06-14 13:29] MED LIST changes: -GLIP-212 PO; +GLIP5TAB26 PO
[2019-06-14 13:42] VITALS: BP_SYST 134
[2019-06-14] MEDS ORDERED: MECLIZINE HCL 25 MG TABLET (ANITVERT) PO ONE (14:30)
[2019-06-14] MEDS ORDERED: ONDANSETRON 4 MG ODT TAB PO ONE (14:30)
[2019-06-14 14:54] LABS: BASOPHILS % (AUTO) 0.5 % (0.0-2.0); EOSINOPHILS # (AUTO) 0.1 K/uL (0.0-0.4); EOSINOPHILS % (AUTO) 1.7 % (0.0-4.0); HEMATOCRIT 29.9 % (36-48); HEMOGLOBIN 9.8 g/dL (12.0-16.0); LYMPHOCYTES # (AUTO) 0.7 K/uL (1.0-5.5); MEAN CORPUSCULAR HEMOGLOBIN 28 pg (27-31); MEAN CORPUSCULAR HGB CONC 33 % (32-36); MEAN CORPUSCULAR VOLUME 85 fL (79.0-98.0); MONOCYTES # (AUTO) 0.8 K/uL (0.0-1.0); MONOCYTES % (AUTO) 15.4 % (1.7-9.3); NEUTROPHILS # (AUTO) 3.6 K/uL (1.8-7.7); NEUTROPHILS % (AUTO) 69.4 % (40.0-70.0); PLATELET COUNT (AUTO) 211 K/uL (130-430); RED BLOOD CELL COUNT(AUTO) 3.54 MIL/uL (4.2-6.2); RED CELL DISTRIBUTION WIDTH 18.9 % (9.0-15.0); WHITE BLOOD COUNT (AUTO) 5.2 K/uL (4.8-10.8)
[2019-06-14 14:56] LABS: ANION GAP 10 (5-15); CALCIUM 8.3 mg/dL (8.4-11.0); CHLORIDE 103 mmol/L (98-107); CREATININE 0.93 mg/dL (0.55-1.30); GLUCOSE 183 mg/dL (70-99); POTASSIUM 4.2 mmol/L (3.5-5.1); SODIUM SERUM 139 mmol/L (136-145); UREA NITROGEN, BLOOD 16 mg/dL (8-21)
[2019-06-14 15:02] LABS: ALANINE AMINOTRANSFERASE 16 U/L (12-78); ALBUMIN 2.5 g/dL (3.4-4.8); ASPARTATE AMINOTRANSFERASE 14 U/L (10-37); TOTAL BILIRUBIN 0.4 mg/dL (0.0-1.0)
[2019-06-14 15:28] LABS: BILIRUBIN,URINE NEGATIVE (NEGATIVE); CLARITY/URINE SL CLOUDY (CLEAR); COLOR,URINE YELLOW (YELLOW); GLUCOSE,URINE TRACE (NEGATIVE); KETONES,URINE NEGATIVE (NEGATIVE); LEUKOCYTE ESTERASE ,URINE 2+ (NEGATIVE); NITRITE, URINE POSITIVE (NEGATIVE); PROTEIN URINE NEGATIVE (NEGATIVE)
[2019-06-14 15:43] LABS: BLOOD, URINE TRACE (NEGATIVE)
[2019-06-14 15:52] LABS: BACTERIA,URINE MANY /HPF (None Seen); WBC,URINE 80-100 /HPF (0-3)
[2019-06-14 15:53] LABS: MUCUS,URINE None Seen /LPF (None Seen)
[2019-06-14 16:35] VITALS: BP_SYST 130
== END 2019-06-14 16:33 | disposition home or self-care (01) ==
LOC: SED 13:29
DX: S09.90XA Unspecified injury of head, initial encounter (principal); N39.0 Urinary tract infection, site not specified; D64.9 Anemia, unspecified; I48.91 Unspecified atrial fibrillation; E11.9 Type 2 diabetes mellitus without complications; I10 Essential (primary) hypertension; M79.7 Fibromyalgia; F41.9 Anxiety disorder, unspecified; Z90.710 Acquired absence of both cervix and uterus; Z86.73 Personal history of transient ischemic attack (TIA), and cerebral infarction without residual deficits; Z88.2 Allergy status to sulfonamides; Z79.82 Long term (current) use of aspirin; Z79.899 Other long term (current) drug therapy; W18.09XA Striking against other object with subsequent fall, initial encounter; Y93.89 Activity, other specified; Y92.89 Other specified places as the place of occurrence of the external cause; Y99.8 Other external cause status
CPT/HCPCS: 36415; 70450; 80053; 81000; 85025; 87086; 87186; 99284; J8597; Q0162

== ENCOUNTER 2019-07-27 11:07 | Inpatient (IN) | payer OTHER ==
[~2019-07-27] VITALS: Ht 154.9 cm; Wt 87.1 kg
[2019-07-27 11:29] VITALS: BP_SYST 113
--- NOTE | 2019-07-27 11:41 | NUR ---
Patient to ER bed 7 to gown for evaluation. Side rails up. Report given to Ashanti OROZCO.
--- NOTE | 2019-07-27 11:46 | NUR ---
PATIENT CAME IN COMPLAINING OF DISURIA AND UTI FOR PAST 30 DAYS. PATIENT COMPLAINING OF LEFT FLANK PAIN 8/10. PATIENT STATES SHE HAS BEEN ON MULTIPLE ANITBIOTICS THAT HAVE NOT BEEN WORKING. PATIENT TAKING PERCOCET FOR PAIN. PATIENT DENIES BLOOD IN URINE BUT IS CLOUDY. PATIENT HAS HISTORY OF PROLAPSED BLADDER. PATIENT DENIES SOB. PATIENT IS ALERT AND ORIENTED X4.
[2019-07-27] MEDS ORDERED: PIPERACILLIN/TAZO 3.38 GM in NS 50 ML IV ONE (12:15)
[2019-07-27] MEDS ORDERED: PIPERACILLIN/TAZOBACTAM 3.375 GM/VIAL (ZOSYN) IV ONE (12:29)
--- NOTE | 2019-07-27 12:33 | NUR ---
# 20 gauge angiocath placed to LEFT AC. Use of asceptic technique. Opsite placed over site. Blood return noted. Blood for lab drawn from site. Flushed with 10 cc of normal saline. No evidence of infiltration noted. Patient tolerated well.
--- NOTE | 2019-07-27 12:34 | NUR ---
ER Dr. PERRIN at bedside examining patient.
[2019-07-27 12:52] LABS: BASOPHILS % (AUTO) 0.6 % (0.0-2.0); EOSINOPHILS # (AUTO) 0.5 K/uL (0.0-0.4); EOSINOPHILS % (AUTO) 7.3 % (0.0-4.0); HEMATOCRIT 36.6 % (36-48); HEMOGLOBIN 12.1 g/dL (12.0-16.0); LYMPHOCYTES # (AUTO) 0.7 K/uL (1.0-5.5); LYMPHOCYTES % (AUTO) 10.2 % (20.5-51.5); MEAN CORPUSCULAR HEMOGLOBIN 28 pg (27-31); MEAN CORPUSCULAR HGB CONC 33 % (32-36); MEAN CORPUSCULAR VOLUME 84 fL (79.0-98.0); MONOCYTES # (AUTO) 0.8 K/uL (0.0-1.0); MONOCYTES % (AUTO) 10.5 % (1.7-9.3); NEUTROPHILS # (AUTO) 5.2 K/uL (1.8-7.7); NEUTROPHILS % (AUTO) 71.4 % (40.0-70.0); PLATELET COUNT (AUTO) 268 K/uL (130-430); RED BLOOD CELL COUNT(AUTO) 4.36 MIL/uL (4.2-6.2); RED CELL DISTRIBUTION WIDTH 17.7 % (9.0-15.0); WHITE BLOOD COUNT (AUTO) 7.2 K/uL (4.8-10.8)
--- NOTE | 2019-07-27 13:01 | NUR ---
PATIENT LEAVING NOW TO RADIOLOG VIA GURNEY IN STABLE CONDITION.
[2019-07-27 13:19] LABS: PROTHROMBIN TIME 10.6 SECS (9.5-12.5)
[2019-07-27 13:22] LABS: ANION GAP 9 (5-15); CALCIUM 9.4 mg/dL (8.4-11.0); CHLORIDE 101 mmol/L (98-107); CREATININE 0.94 mg/dL (0.55-1.30); GLUCOSE 228 mg/dL (70-99); POTASSIUM 4.6 mmol/L (3.5-5.1); SODIUM SERUM 136 mmol/L (136-145); UREA NITROGEN, BLOOD 18 mg/dL (8-21)
--- NOTE | 2019-07-27 13:22 | NUR ---
PATIENT BACK FROM RADIOLOGY IN STABLE CONDITION.
[2019-07-27 13:26] LABS: ALANINE AMINOTRANSFERASE 18 U/L (12-78); ALBUMIN 3.7 g/dL (3.4-4.8); ASPARTATE AMINOTRANSFERASE 25 U/L (10-37); LIPASE 220 U/L (73-393); TOTAL BILIRUBIN 0.7 mg/dL (0.0-1.0)
[2019-07-27 13:37] LABS: BILIRUBIN,URINE NEGATIVE (NEGATIVE); BLOOD, URINE 2+ (NEGATIVE); CLARITY/URINE CLEAR (CLEAR); COLOR,URINE YELLOW (YELLOW); GLUCOSE,URINE NEGATIVE (NEGATIVE); KETONES,URINE NEGATIVE (NEGATIVE); LEUKOCYTE ESTERASE ,URINE 2+ (NEGATIVE); NITRITE, URINE NEGATIVE (NEGATIVE); PROTEIN URINE TRACE (NEGATIVE); UROBILINOGEN,URINE 0.2 (0.2-1.0)
[2019-07-27 13:57] LABS: BACTERIA,URINE FEW /HPF (None Seen); MUCUS,URINE 1+ /LPF (None Seen); WBC,URINE 50-80 /HPF (0-3)
--- NOTE | 2019-07-27 14:50 | NUR ---
SPOKE TO PATIENT ABOUT END OF LIFE CARE. PATIENT STATES SHE IS FULL CODE BUT DOES NOT WANT TO BE ON LIFE SUPPORT.
--- NOTE | 2019-07-27 15:10 | NUR ---
Patient will be admitted to care of dr bustos. Admitted to tele unit. Will go to room 102A. Belongings list completed. Summary report printed. Report will be given at bedside.
[2019-07-27] MEDS ORDERED: ACETAMINOPHEN 500 MG TABLET PO ONE (15:15)
--- NOTE | 2019-07-27 15:23 | NUR ---
UNABLE TO OBTAIN MEDICATION RECORDS FROM [facility]. PHARMACY IS CURRENTLY CLOSED FOR THE HOLIDAY.
--- NOTE | 2019-07-27 15:35 | NUR ---
Transfer to tele via ACLS protocol. Licensed nurse present. IV present no signs or symptoms of infiltration.
--- NOTE | 2019-07-27 15:40 | NUR ---
report given to tiesha law at bedside.
--- NOTE | 2019-07-27 15:45 | NUR ---
Admission Note Received patient from ER with diagnosis of pyelonepritis. Initial Plan of Care discussed-patient verbalized understanding. Family at bedside. Oriented to room, call light, pain management and safety.
[2019-07-27 16:00] VITALS: BP_SYST 134
[2019-07-27] MEDS ORDERED: CLON0.5T12 PO (16:51)
[2019-07-27] MEDS: NACL 0.9% 1,000 ML IV SCH (16:52)
[2019-07-27] MEDS ORDERED: GLUXR500 PO (16:52)
[2019-07-27] MEDS: ONDANSETRON HCL 4 MG/2 ML VIAL IVP PRN (17:11)
--- NOTE | 2019-07-27 17:15 | NUR ---
Note-Pt awake, watching television. Complaining of nausea. Provided emesis bag. Medicated with Zofran PRN. Will continue to monitor.
--- NOTE | 2019-07-27 18:23 | NUR ---
Closing Note-Pt awake, resting in bed. On room air tolerating well. Assisted pt to restroom with walker. Gait is steady. Reposition pt for comfort. Safety precautions in place, bed alarm on and in lowest position, call light within reach and encourage pt to use for assistance. will continue to monitor until pt care is endorsed to date night sitter nurse.
--- NOTE | 2019-07-27 19:52 | NUR ---
Initial note: Received report from dayshift RN. Patient is awake in bed watching TV. Alert and oriented x4, no acute distress. Tolerating room air. IV to left AC is patent and benign, receiving IV fluids as ordered. Call light is with patient. Bed is locked in lowest position, side rails raised x3, bed alarm on. Call light is with patient. Will continue with plan of care.
[2019-07-27 20:00] VITALS: BP_SYST 130
[2019-07-27] MEDS: PIPERACILLIN/TAZO 3.375/DEX-IS 50 ML IV SCH (20:21)
--- NOTE | 2019-07-27 21:12 | NUR ---
Dr. Pena: Spoke with Dr. Pena over phone. MD was made aware regarding patient's complaint of nausea unresolved by Zofran and anxiety. New orders received, verified by read-back, RN to input.
[2019-07-27] MEDS ORDERED: METOCLOPRAMIDE HCL 10 MG/2 ML VIAL IVP SCH (21:30)
[2019-07-27] MEDS ORDERED: clonazePAM 0.5 MG TABLET PO SCH (21:30)
--- NOTE | 2019-07-27 21:39 | NUR ---
Nausea: Patient is complaining of nausea, unresolved by Zofran given earlier. Administered Reglan 10 MG intravenously as ordered. No adverse effects noted. IV fluids resumed per MD order. Call light is with patient. Will continue to monitor.
[2019-07-27] MEDS: ACETAMINOPHEN 325 MG TABLET PO PRN (22:26)
--- NOTE | 2019-07-27 23:47 | NUR ---
Rounds: Patient is resting comfortably in bed, no distress. Respirations are even, unlabored on room are. IV site is patent and benign, receiving fluids as ordered. Call light is with patient. Will continue to monitor.
[2019-07-28 00:12] VITALS: BP_SYST 126
--- NOTE | 2019-07-28 01:52 | NUR ---
Bathroom: Bed alarm was activated by patient sitting at edge of bed. Patient wanted to go to the bathroom. Call light was with patient, she did not use it. Patient ambulated to the bathroom using front wheel walker with RN on standby assist, and back to bed. Denies any pain, shortness of breath, dizziness. Safety and fall precautions observed. Bedside commode now in place per patient request. Call light is with patient. Will continue to monitor.
--- NOTE | 2019-07-28 04:13 | NUR ---
Rounds: Patient is asleep. No acute distress noted. Even, unlabored breathing on room air. IV site is patent, benign, receiving fluids as ordered. Call light with patient. Will continue monitoring.
[2019-07-28] MEDS: PIPERACILLIN/TAZO 3.375/DEX-IS 50 ML IV SCH ×3 (04:39→20:28)
[2019-07-28] MEDS: NACL 0.9% 1,000 ML IV SCH (04:39)
[2019-07-28] MEDS: ACETAMINOPHEN 325 MG TABLET PO PRN ×3 (05:37→22:31)
--- NOTE | 2019-07-28 07:00 | NUR ---
Closing note: Patient is asleep, no distress. Even, unlabored on room air. IV fluids infusing as ordered. All needs met. Safety and fall precautions in place. Hourly rounding performed throughout shift. Will endorse care to dayshift RN.
[2019-07-28 07:11] LABS: BASOPHILS % (AUTO) 0.7 % (0.0-2.0); EOSINOPHILS # (AUTO) 0.6 K/uL (0.0-0.4); EOSINOPHILS % (AUTO) 13.2 % (0.0-4.0); HEMATOCRIT 30.9 % (36-48); LYMPHOCYTES # (AUTO) 0.8 K/uL (1.0-5.5); LYMPHOCYTES % (AUTO) 15.6 % (20.5-51.5); MEAN CORPUSCULAR HEMOGLOBIN 27 pg (27-31); MEAN CORPUSCULAR HGB CONC 32 % (32-36); MEAN CORPUSCULAR VOLUME 84 fL (79.0-98.0); MONOCYTES # (AUTO) 0.6 K/uL (0.0-1.0); MONOCYTES % (AUTO) 12.3 % (1.7-9.3); NEUTROPHILS # (AUTO) 2.9 K/uL (1.8-7.7); NEUTROPHILS % (AUTO) 58.2 % (40.0-70.0); PLATELET COUNT (AUTO) 181 K/uL (130-430); RED BLOOD CELL COUNT(AUTO) 3.66 MIL/uL (4.2-6.2); RED CELL DISTRIBUTION WIDTH 17.2 % (9.0-15.0)
[2019-07-28 07:14] LABS: ANION GAP 3 (5-15); CALCIUM 8.5 mg/dL (8.4-11.0); CHLORIDE 108 mmol/L (98-107); CREATININE 0.92 mg/dL (0.55-1.30); GLUCOSE 86 mg/dL (70-99); POTASSIUM 3.6 mmol/L (3.5-5.1); SODIUM SERUM 141 mmol/L (136-145); UREA NITROGEN, BLOOD 14 mg/dL (8-21)
[2019-07-28 07:19] LABS: ALANINE AMINOTRANSFERASE 13 U/L (12-78); ASPARTATE AMINOTRANSFERASE 12 U/L (10-37); TOTAL BILIRUBIN 0.5 mg/dL (0.0-1.0)
[2019-07-28 07:22] LABS: WHITE BLOOD COUNT (AUTO) 4.9 K/uL (4.8-10.8)
[2019-07-28 07:29] VITALS: BP_SYST 149
--- NOTE | 2019-07-28 07:30 | NUR ---
Received patient alert, awake, oriented. denies pain or discomfort at this time. assisted to use bedside commode. voided. francis care provided. lung sound wheezing expiratory. skin intact. ivf infusing well site at left ac#20 patent, no infiltration and swelling noted. vital sign stable,afebrile. bs 92. updated about the POC. verbalized understanding. call light within reach. bed is low and lock position. bed alarm on.
[2019-07-28] MEDS ORDERED: clonazePAM 0.5 MG TABLET PO PRN (08:45)
--- NOTE | 2019-07-28 08:45 | NUR ---
MD ROUNDS: seen by DR. Scanlon at the bedside.
[2019-07-28] MEDS ORDERED: ALBUTEROL SULFATE 0.083% 2.5 MG/3 ML VIAL.NEB INH PRN (09:00)
[2019-07-28] MEDS ORDERED: IPRATROPIUM BROM 0.5 MG/2.5 ML VIAL.NEB (ATROVENT) INH PRN (09:00)
[2019-07-28] MEDS: POLYETHYLENE GLYCOL 3350, 17 GM/ POWD.PACK PO SCH (10:02)
[2019-07-28] MEDS: ONDANSETRON HCL 4 MG/2 ML VIAL IVP PRN (10:02)
[2019-07-28] MEDS: ATORVASTATIN 10 MG TABLET PO SCH (10:03)
[2019-07-28] MEDS: SOTALOL HCL 80 MG TABLET PO SCH ×2 (10:03→20:33)
[2019-07-28] MEDS: ENOXAPARIN SODIUM 40 MG/0.4 ML SYRINGE SUBCUT SCH (10:07)
[2019-07-28] MEDS: IPRATROPIUM BROM 0.5 MG/2.5 ML VIAL.NEB (ATROVENT) INH SCH ×4 (10:11→23:00)
[2019-07-28] MEDS: ALBUTEROL SULFATE 0.083% 2.5 MG/3 ML VIAL.NEB INH SCH ×4 (10:11→23:00)
--- NOTE | 2019-07-28 10:29 | NUR ---
Pt. to 2L O2 after HHN tx, per order.
--- NOTE | 2019-07-28 10:30 | NUR ---
ECHOCARDIOGRAM DONE AT BEDSIDE.
[2019-07-28 11:18] VITALS: BP_SYST 148
[2019-07-28] MEDS: glipiZIDE XL 5 MG TAB ( GLUCOTROL XL) PO SCH ×2 (11:29→20:33)
[2019-07-28] MEDS ORDERED: HYDROcodone/ACETAMIN 5-325 MG TAB (NORCO/ VICODIN) PO PRN (12:00)
--- NOTE | 2019-07-28 12:00 | NUR ---
ACCUCHECK AND INSULIN SLIDING SCALE COVERAGE OBTAIN FROM DR. SURESH.6 UNITS OF REGULAR INSULIN ADMINISTERED. BS 253.
[2019-07-28] MEDS: INSULIN REGULAR, HUMAN 100 UNITS/ML, 10 ML VIAL (humuLIN R) SUBCUT PRN (12:19)
[2019-07-28 15:23] VITALS: BP_SYST 122
[2019-07-28] MEDS: LORazepam 1 MG TABLET PO PRN (15:29)
--- NOTE | 2019-07-28 16:00 | NUR ---
PATIENT HAD X2 BOWEL MOVEMENT AFTER LAXATIVE ADMINISTERED THIS MORNING.
[2019-07-28] MEDS: buPROPion HCL 75 MG TABLET PO SCH (17:06)
--- NOTE | 2019-07-28 18:42 | NUR ---
all needs mets. no significant changes of condition noted. vital sign stable, afebrile.will endorsed to incoming nurse.
--- NOTE | 2019-07-28 19:20 | NUR ---
INITIAL NOTE RECEIVED PATIENT AWAKE, ALERT AND ORIENTED. NO SOB NOTED. DENIES ANY PAIN, N/V AT THIS TIME. O2 NEEDED. SALINE LOCK. SKIN INTACT WITH SEVERAL ECCHYMOSES. MILD EDEMA NOTED ON BLE. ADVISED TO ELEVATE WHILE IN BED. CARE AND MONITORING WILL BE PROVIDED PER PROTOCOL. CALL LIGHT WITHIN REACH. BED ALARM OFF PER PATIENT'S REQUEST. BED AT LOWEST POSITION AT ALL TIMES. NEEDS ATTENDED. KEPT WARM AND COMFORTABLE.
[2019-07-28 20:00] VITALS: BP_SYST 133
--- NOTE | 2019-07-28 20:30 | NUR ---
RN NOTE DUE MEDS GIVEN, TOLERATED WELL. LATEST BLOOD SUGAR WAS 137, NO COVERAGE GIVEN. ASSISTED TO THE BATHROOM SEVERAL TIMES. PATIENT USES A WALKER WITH STEADY GAIT. NON SKID SOCKS IN PLACE. KEPT WARM AND COMFORTABLE.
--- NOTE | 2019-07-28 22:31 | NUR ---
RN NOTE MEDICATED FOR MILD GENERALIZED PAIN AND ACCORDING TO HER IT HELPS HER TO SLEEP. WILL CONTINUE TO MONITOR.
--- NOTE | 2019-07-29 01:10 | NUR ---
RN NOTE PATIENT SLEEPING AT THIS TIME. NO SOB OR GRIMACING NOTED.
[2019-07-29] MEDS: LORazepam 1 MG TABLET PO PRN ×3 (02:22→15:52)
--- NOTE | 2019-07-29 02:25 | NUR ---
INSOMNIA ASSISTED PATIENT TO THE BATHROOM WITH A WALKER. LAXATIVE THAT SHE TOOK YESTERDAY IS STILL WORKING. ASSISTED BACK TO BED. MEDICATED FOR INSOMNIA PER PATIENT'S REQUEST. WILL CONTINUE TO MONITOR. KEPT WARM AND COMFORTABLE.
[2019-07-29 02:43] VITALS: BP_SYST 135
[2019-07-29] MEDS: IPRATROPIUM BROM 0.5 MG/2.5 ML VIAL.NEB (ATROVENT) INH SCH ×5 (03:00→19:53)
[2019-07-29] MEDS: ALBUTEROL SULFATE 0.083% 2.5 MG/3 ML VIAL.NEB INH SCH ×5 (03:00→19:53)
[2019-07-29] MEDS: PIPERACILLIN/TAZO 3.375/DEX-IS 50 ML IV SCH ×2 (03:12→12:25)
--- NOTE | 2019-07-29 04:00 | NUR ---
RN NOTE ASLEEP, MOVES OCCASIONALLY. NO DISTRESS NOTED.
[2019-07-29 06:09] LABS: BASOPHILS # (AUTO) 0.1 K/uL (0.0-0.2); BASOPHILS % (AUTO) 0.8 % (0.0-2.0); EOSINOPHILS # (AUTO) 0.8 K/uL (0.0-0.4); EOSINOPHILS % (AUTO) 11.8 % (0.0-4.0); HEMATOCRIT 34.2 % (36-48); HEMOGLOBIN 11.2 g/dL (12.0-16.0); LYMPHOCYTES % (AUTO) 14.8 % (20.5-51.5); MEAN CORPUSCULAR HEMOGLOBIN 28 pg (27-31); MEAN CORPUSCULAR HGB CONC 33 % (32-36); MEAN CORPUSCULAR VOLUME 84 fL (79.0-98.0); MONOCYTES # (AUTO) 0.8 K/uL (0.0-1.0); MONOCYTES % (AUTO) 11.4 % (1.7-9.3); NEUTROPHILS # (AUTO) 4.2 K/uL (1.8-7.7); NEUTROPHILS % (AUTO) 61.2 % (40.0-70.0); PLATELET COUNT (AUTO) 225 K/uL (130-430); RED BLOOD CELL COUNT(AUTO) 4.07 MIL/uL (4.2-6.2); RED CELL DISTRIBUTION WIDTH 17.5 % (9.0-15.0); WHITE BLOOD COUNT (AUTO) 6.9 K/uL (4.8-10.8)
--- NOTE | 2019-07-29 06:22 | NUR ---
END NOTE AFEBRILE. VS STABLE. NO COMPLAIN OF SOB OR N/V THROUGHOUT THE NIGHT. MEDICATED FOR PAIN ONCE AND FOR INSOMNIA ALL NIGHT. AMBULATES WITH ASSIST AND A WALKER. ROOM AIR ALL NIGHT. HAD DIARRHEA SEVERAL TIMES DUE TO LAXATIVE GIVEN YESTERDAY PM. IV ANTIBIOTICS GIVEN. LATEST BLOOD SUGAR WAS 124, NO COVERAGE GIVEN. AM LABS TODAY. CARE AND MONITORING WILL BE PROVIDED PER PROTOCOL. CALL LIGHT WITHIN REACH. BED ALARM ON AND AT LOWEST POSITION AT ALL TIMES. NEEDS ATTENDED. KEPT WARM AND COMFORTABLE.
[2019-07-29] MEDS ORDERED: LEVOTHYROXINE SODIUM 0.05 MG TABLET PO SCH (07:00)
[2019-07-29 07:05] LABS: ALANINE AMINOTRANSFERASE 15 U/L (12-78); ALBUMIN 3.4 g/dL (3.4-4.8); ANION GAP 9 (5-15); ASPARTATE AMINOTRANSFERASE 14 U/L (10-37); CALCIUM 8.6 mg/dL (8.4-11.0); CHLORIDE 106 mmol/L (98-107); CREATININE 0.84 mg/dL (0.55-1.30); GLUCOSE 133 mg/dL (70-99); SODIUM SERUM 144 mmol/L (136-145); TOTAL BILIRUBIN 0.6 mg/dL (0.0-1.0); UREA NITROGEN, BLOOD 14 mg/dL (8-21)
--- NOTE | 2019-07-29 07:38 | NUR ---
OPENING NOTE Patient resting in the bed. No acute distress. AAO x 4. Denied of pain. Skin warm and dry to touch. SL intact to LAC, no redness, no swelling, patent. Discussed the safety issue, use call light when needs help, and plan of care, verbally understanding. Safety measure maintained. Call light within reached. Bed locked in low position, side rails up, bed alarm on. Will continue to monitor.
[2019-07-29 08:00] VITALS: BP_SYST 150
[2019-07-29] MEDS: POLYETHYLENE GLYCOL 3350, 17 GM/ POWD.PACK PO SCH (09:00)
[2019-07-29] MEDS ORDERED: LISINOPRIL 5 MG TABLET PO SCH (09:00)
[2019-07-29] MEDS: glipiZIDE XL 5 MG TAB ( GLUCOTROL XL) PO SCH (09:22)
[2019-07-29] MEDS: SOTALOL HCL 80 MG TABLET PO SCH (09:23)
[2019-07-29] MEDS: ATORVASTATIN 10 MG TABLET PO SCH (09:23)
[2019-07-29] MEDS: ENOXAPARIN SODIUM 40 MG/0.4 ML SYRINGE SUBCUT SCH (09:24)
--- NOTE | 2019-07-29 09:25 | NUR ---
PATIENT C/O FEELING WEAK AND REQUESTED BLOOD SUGAR CHECK, NJ=[id number] Patient no acute distress. Son at bedside and awake BS. Am schedule med given. Safety measure maintained. Call light within reached. Bed locked in low position, side rails up, bed alarm on. Continue to monitor.
--- NOTE | 2019-07-29 10:38 | NUR ---
SEEN AND EXAMINED BY REDDY HUERTA Reported to Dr. Scanlon, patient c/o diarrhea, Miralax not given this morning, explained to the patient no anti-diarrhea ordered and c/o nausea now. Informed to Capo Hanley, per patient case manager this morning, recommended psy consult for depression.
[2019-07-29] MEDS: ONDANSETRON HCL 4 MG/2 ML VIAL IVP PRN (10:44)
--- NOTE | 2019-07-29 10:48 | NUR ---
ZOFRAN GIVEN Patient c/o nausea, Zofran 4mg IVP given as ordered. No acute distress. Patient resting in the bed in semi-Flower position. Safety measure maintained. Bed locked in low position, side rails up, bed alarm on. Call light within reached. Continue to monitor.
[2019-07-29 11:15] VITALS: BP_SYST 150
--- NOTE | 2019-07-29 12:25 | NUR ---
OR=521. Humulin R insulin 4 units given for AU=691. Safety measure maintained. Call light within reached. Bed locked in low position, side rails up, bed alarm on. Continue to monitor.
[2019-07-29] MEDS: INSULIN REGULAR, HUMAN 100 UNITS/ML, 10 ML VIAL (humuLIN R) SUBCUT PRN (12:26)
--- NOTE | 2019-07-29 13:50 | NUR ---
CALLED THE SON FOR DISCHARGE Per son, Ian, will be come to picker tender the patient after 9pm, may be his can come around 8:30pm.
--- NOTE | 2019-07-29 14:20 | NUR ---
BATHROOM Assisted to bathroom by using walker. Void with yellow urine and loose bowel, good pericare provided. Assisted back to bed. Safety measure maintained. Call light within reached. Bed locked in low position, side rails up, bed alarm on. Continue to monitor.
[2019-07-29 15:31] VITALS: BP_SYST 116
--- NOTE | 2019-07-29 15:53 | NUR ---
ATIVAN GIVEN Patient c/o feeling anxiety, Ativan 0.5mg PO given as ordered. No acute distress. Patient sitting in the chair next to bed. Safety measure maintained. Call light within reached. Continue to monitor.
[2019-07-29] MEDS: buPROPion HCL 75 MG TABLET PO SCH (18:13)
--- NOTE | 2019-07-29 18:13 | NUR ---
EB=411 No insulin needed per sliding scale.
--- NOTE | 2019-07-29 18:56 | NUR ---
CLOSING NOTE Patient resting in the bed. No acute distress. AAO x 4. Denied of pain. Skin warm and dry to touch. SL intact to LAC, no redness, no swelling, patent. All needs met and attended. Safety measure maintained. Call light within reached. Bed locked in low position, side rails up, bed alarm on. Waiting for the son to filler picker. Will endorse to night nurse.
[2019-07-29 18:58] VITALS: BP_SYST 90
--- NOTE | 2019-07-29 19:01 | NUR ---
PAGED I PAGED DR. SURESH @ 0052 I SPOKE WITH THAIS CASH
--- NOTE | 2019-07-29 19:08 | NUR ---
DR. DEMETRICE SURESH CAllED BACK @ 190 BUT RN COULD NOT HEARD HIM LOST COMMUNICATION
--- NOTE | 2019-07-29 19:10 | NUR ---
PAGED I PAGED DR. SURESH @ 1909 I SPOKE WITH HOWIE EXCHANGE
--- NOTE | 2019-07-29 19:30 | NUR ---
INITIAL NOTE RECEIVED PATIENT AWAKE, ALERT AND ORIENTED x4. NO SOB NOTED. DENIES ANY PAIN, N/V AT THIS TIME. BREATHING IS UNLABORED TO ROOM AIR. PT IS SALINE LOCKED. SKIN INTACT WITH SEVERAL ECCHYMOSES. MILD EDEMA NOTED ON BLE. PT IS SITTING ON BED, AWAITING HER SON FOR DISCHARGE. CARE AND MONITORING WILL BE PROVIDED PER PROTOCOL. CALL LIGHT WITHIN REACH. BED ALARM OFF PER PATIENT'S REQUEST. BED AT LOWEST POSITION AT ALL TIMES. SIDE RAILS UP X2. NEEDS ATTENDED. WILL MONITOR.
--- NOTE | 2019-07-29 19:40 | NUR ---
PAGED I PAGED DR. SURESH @ 1939 I SPOKE WITH HOWIE EXCHANGE THIS IS THE THIRD TIME UNTIL NOW DR. SURESH HAS NOT CALL US
[2019-07-29 20:00] VITALS: BP_SYST 132
--- NOTE | 2019-07-29 20:08 | NUR ---
PAGED I PAGED DR. SURESH @ 2082
[2019-07-29] MEDS ORDERED: LEVO750T45 PO (20:16)
--- NOTE | 2019-07-29 20:28 | NUR ---
DR. DEMETRICE SURESH CALLED BACK @ 2027
--- NOTE | 2019-07-29 20:30 | NUR ---
SPOKE TO DR. SURESH REGARDING PT'S HOME MEDICATIONS. DR. SURESH STATED TO CONTINUE ALL HOME MEDS.
--- NOTE | 2019-07-29 20:35 | NUR ---
DISCHARGE PT IS AAOX4, BREATHING UNLABORED TO ROOM AIR, VSS. PT'S SON, PITER, IS AT BEDSIDE. DISCHARGE INSTRUCTIONS AND EDUCATION PROVIDED TO PT AND PT'S SON PITER, INCLUDING TO FOLLOW UP WITH PRIMARY CARE PHYSICIAN WITHIN TWO WEEKS. PT AND PT'S SON INFORMED THAT MD HAS STATED PT IS TO CONTINUE ALL HOME MEDICATIONS UPON DISCHARGE, UNDERSTANDING VERBALIZED. IV DISCONTINUED, CATHETER TIP IS INTACT. PT WHEELED OUT TO PRIVATE AUTO VIA WHEELCHAIR AND ASSISTED TO CAR SAFELY.
--- NOTE | 2019-08-06 15:29 | NUR ---
DISCHARGE FOLLOW UP PHONE CALL AMANDA/ LUANN MYERS PHONED PATIENT, . PATIENT STATED SHE WAS NOT FEELING TOO WELL. SHE UNDERSTOOD DISCHARGE INSTRUCTIONS. ALREADY MADE APPOINTMENT WITH PCP FOR NEXT WEEK. SHE IS TAKING HER MEDICATIONS INSTRUCTED. SHE HAS NO QUESTIONS OR CONCERNS. SHE WILL CALL THE HOSPITAL IF SHE HAS ANY QUESTIONS IN THE FUTURE.
== END 2019-07-29 20:35 | disposition home or self-care (01) | DRG 690 ==
LOC: SED 11:07 → STU 14:39 → SMU 07-28 15:47
PROVIDERS: ADMIT Internal Medicine; ATTEND Internal Medicine
DX: N12 Tubulo-interstitial nephritis, not specified as acute or chronic (principal); E11.9 Type 2 diabetes mellitus without complications; Z96.659 Presence of unspecified artificial knee joint; F41.9 Anxiety disorder, unspecified; I10 Essential (primary) hypertension; M79.7 Fibromyalgia; I25.10 Atherosclerotic heart disease of native coronary artery without angina pectoris; I48.91 Unspecified atrial fibrillation; Z90.710 Acquired absence of both cervix and uterus; Z98.61 Coronary angioplasty status; Z88.2 Allergy status to sulfonamides; Z79.899 Other long term (current) drug therapy; Z79.82 Long term (current) use of aspirin; Z90.49 Acquired absence of other specified parts of digestive tract; Z86.73 Personal history of transient ischemic attack (TIA), and cerebral infarction without residual deficits
CPT/HCPCS: 36415; 71045; 80053; 81000-TC; 82962; 83605; 83690-TC; 83880; 84484; 85025; 85610-TC; 87040-TC; 87086; 93005; 93306; 94640; 94760; 96365; 99285; G0378; J1650; J1815; J2405; J2543; J2765; J7030; J7613